=== PATIENT | male | born 1945 | race Caucasian/White ===

== ENCOUNTER 2020-05-04 19:53 | Emergency (ER) | payer BC ==
[~2020-05-04] VITALS: Ht 182.9 cm; Wt 104.1 kg
[2020-05-04] MEDS ORDERED: PRAVACHOL40 MG PO (20:16)
[2020-05-04] MEDS ORDERED: TOPROL XL50 MG PO (20:16)
[2020-05-04] MEDS ORDERED: NORVASC5 M1 PO (20:16)
[2020-05-04] MEDS ORDERED: BENAZEPRIL HCL40 MG PO (20:16)
[2020-05-04 20:35] LABS: ABSOLUTE LYMPHOCYTES 0.6 thou/uL (0.8-5.3); ABSOLUTE MONOCYTES 0.3 thou/uL (0.0-1.2); ABSOLUTE NEUTROPHILS 1.9 thou/uL (1.6-8.1); BASOPHILS 0.7 %; EOSINOPHILS 0.3 %; HEMATOCRIT 43.2 % (42.0-52.0); HEMOGLOBIN 15.2 gm/dL (14.0-18.0); LYMPHOCYTES 22.7 %; MCH 32.4 pg (26.0-34.0); MCHC 35.3 g/dL (28.0-37.0); MCV 91.9 fL (80.0-100.0); MONOCYTES 9.6 %; MPV 7.5 fl. (7.2-11.1); NUCLEATED RBCS 0 /100WBC; PLATELET COUNT* 117 thou/uL (150-400); POLYS 66.7 %; RBC 4.69 mil/uL (4.50-6.00); RDW-CV 14.1 % (10.5-14.5); WBC 2.8 thou/uL (4.0-11.0)
[2020-05-04 20:50] LABS: INR 1.1; PROTIME 11.2 Seconds (9.20-11.50)
[2020-05-04 20:54] LABS: CALCIUM 8.3 mg/dL (8.5-10.1); CREATININE 1.6 mg/dL (0.6-1.3)
[2020-05-04 20:58] LABS: ALBUMIN 3.6 g/dL (3.4-5.0); TOTAL BILIRUBIN 1.1 mg/dL (<0.1-1.0); TOTAL PROTEIN 7.5 g/dL (6.4-8.2)
[2020-05-04 22:15] VITALS: BP 136/55
[2020-05-04 22:16] LABS: INFLUENZA A ANTIGEN Negative (Negative); INFLUENZA B ANTIGEN Negative (Negative)
--- NOTE | 2020-05-06 10:26 | EKG ---
[place] [address] ELECTROCARDIOGRAM REPORT Name: SHAVONNE MIRANDA Room: [facility]#: [id number] Admission: 05/04/20 Attend Phys: Discharge: 05/04/20 Date of : 41 Date of Service: 05/04/202020 Report #: [id number] THIS REPORT FOR: //name// [facility] ED Test Date: 2020-05-04 Test Time: 20:21:39 Pat Name: SHAVONNE MIRANDA Department: Room: Gender: Senior Sous Chef: : 1945 Requested By: Nargis Proctor Order Number: [id number] MD: Yonny Pereyra Measurements Intervals [place] Rate: 72 P: -38 ND: 166 QRS: -33 QRSD: 112 T: 39 QT: 400 QTc: 438 Interpretive Statements Sinus rhythm Borderline IVCD with LAD Borderline T wave abnormalities No previous ECG available for comparison Electronically Signed On 05-06-2020 10:26:26 CDT by Yonny Pereyra [email or web address] <ELECTRONICALLY SIGNED> By: Yonny Pereyra MD, [facility] 10/06/15 1026 20 20 Yonny Pereyra MD, [facility] /EPI
== END 2020-05-04 22:15 | disposition home or self-care (01) ==
LOC: M.ERS 19:53
PROVIDERS: Emergency Medicine
DX: U07.1 COVID-19 (principal); R41.82 Altered mental status, unspecified; R26.81 Unsteadiness on feet; Z79.899 Other long term (current) drug therapy; Z88.2 Allergy status to sulfonamides

== ENCOUNTER 2020-05-07 22:47 | Inpatient (IN) | payer MEDICARE ==
[~2020-05-07] VITALS: Ht 188 cm; Wt 99.7 kg
--- NOTE | ~2020-05-07 | CON ---
[address] [address] CONSULTATION Name: SHAVONNE MIRANDA Enrique Room: [address] ADM IN M.R.#: [id number] Admission: 05/08/20 Attend Phys: Jeremy Garcia, Discharge: Date of : 41 Report #: [id number] THIS REPORT FOR: //name// cc: Tito Foster DO Tito Foster DO ~ THIS REPORT FOR: //name// DATE OF SERVICE: 05/08/2020 HISTORY OF PRESENT ILLNESS: This is a 74-year-old male patient who was evaluated by me for altered mental status. I am not able to get any history in this patient. I reviewed the note from Dr. Fenton as well as Dr. Zapata. Pulmonary note is not typed yet. This patient is COVID positive. He was sent home recently. He was admitted with worsening mentation. That is all the history, which is available. I reviewed the patient's record and I do not think they did any imaging study of the brain in the Emergency Room. This is all the records I have in this patient. There is another record, which is from Dr. Proctor and it looks like he just went home because he did not want to be admitted. That is all the history I can get, but I will try to reach his primary and try to reach admitting doctor and try to talk to the collection specialist and the nurses if we can. I do not know whether this patient has any problem before or not, but I am going to call and we will try to dictate an addendum. On my examination, he did not let me do anything and he did not do anything. He does not appear to have any meningeal sign, but I can tell, he moved anything because he will not do absolutely nothing for me. Apparently, his oxygen saturation was low when he came to Emergency Room and hopefully that will become better. Only imaging studies I see is a chest x-ray, which I reviewed. IMPRESSION: This patient has altered mental status of unknown etiology at the moment. He is COVID positive, but he needs further workup. I have written an order to find out from collection specialist as well as hospitalist to see if he can go down for CT scan. We can see how he does if his oxygen saturation improves. Thank you very much, but I will try to contact other people and see what kind of workup we can do. By: 2143Peli Meléndez MD /nt
[~2020-05-07 22:47] MED LIST: BENAZEPRIL HCL40 MG PO; NORVASC5 M1 PO; PRAVACHOL40 MG PO; TOPROL XL50 MG PO
[2020-05-07 22:49] VITALS: BP 144/92
[2020-05-07] MEDS ORDERED: ALLOPURINOL 30300 M1 PO (22:56)
[2020-05-07 23:32] LABS: ABSOLUTE LYMPHOCYTES 0.4 thou/uL (0.8-5.3); ABSOLUTE MONOCYTES 0.4 thou/uL (0.0-1.2); ABSOLUTE NEUTROPHILS 3.1 thou/uL (1.6-8.1); BASOPHILS 0.5 %; HEMATOCRIT 48.6 % (42.0-52.0); LYMPHOCYTES 9.5 %; MCHC 35.1 g/dL (28.0-37.0); MCV 91.2 fL (80.0-100.0); MONOCYTES 10.2 %; NUCLEATED RBCS 0 /100WBC; PLATELET COUNT* 136 thou/uL (150-400); POLYS 79.8 %; RBC 5.33 mil/uL (4.50-6.00); RDW-CV 13.9 % (10.5-14.5); WBC 3.8 thou/uL (4.0-11.0)
[2020-05-07 23:47] LABS: APTT 28.9 Seconds (25.0-31.3); INR 1.2
[2020-05-07 23:48] LABS: CALCIUM 8.9 mg/dL (8.5-10.1); CREATININE 1.7 mg/dL (0.6-1.3); POTASSIUM 4.5 mmol/L (3.5-5.1)
[2020-05-07 23:58] LABS: ALBUMIN 3.7 g/dL (3.4-5.0); TOTAL BILIRUBIN 1.3 mg/dL (<0.1-1.0)
[2020-05-08] VITALS (8 sets, daily range): BP systolic 113–148; BP diastolic 63–80
[2020-05-08 00:14] LABS: URINE BLOOD 2+ (Negative); URINE CLARITY CLEAR; URINE COLOR YELLOW; URINE GLUCOSE-RANDOM NEGATIVE (Negative); URINE KETONES 1+ (Negative); URINE LEUKOCYTES-REFLEX NEGATIVE (Negative); URINE NITRITE-REFLEX NEGATIVE (Negative); URINE PROTEIN 3+ (Negative); URINE SPECIFIC GRAVITY >= 1.030 (1.005-1.030)
[2020-05-08 00:15] LABS: URINE BILIRUBIN 1+ (Negative)
[2020-05-08 00:16] LABS: ICTOTEST (BILI CONFIRMATORY) Negative (Negative)
[2020-05-08 00:26] LABS: FINE GRANULAR CASTS 0-3 Few /LPF (None Seen); HYALINE CASTS 0-3 Few /LPF (None Seen); SQUAMOUS 0-3 Few /LPF (0-3)
[2020-05-08 00:27] LABS: BACTERIA-REFLEX 1-9 Few /HPF (None Seen); URINE RBC 0-2 Rare /HPF (0-2); URINE WBC-REFLEX 0-5 Rare /HPF (0-5)
[2020-05-08 00:28] LABS: AMORPHOUS URATES Moderate /LPF (None Seen)
[2020-05-08 10:28] LABS: ALBUMIN 3.3 g/dL (3.4-5.0); CALCIUM 8.6 mg/dL (8.5-10.1); CREATININE 1.3 mg/dL (0.6-1.3); POTASSIUM 4.3 mmol/L (3.5-5.1); TOTAL PROTEIN 7.6 g/dL (6.4-8.2)
--- NOTE | 2020-05-08 15:54 | EKG ---
[place] [address] ELECTROCARDIOGRAM REPORT Name: SHAVONNE MIRANDA Enrique Room: [address] ADM IN .R.#: [id number] Admission: 05/08/20 Attend Phys: Jeremy Fernandez Discharge: Date of : 41 Date of Service: 05/07/20 2259 Report #: [id number] THIS REPORT FOR: //name// [facility] ED Test Date: 2020-05-07 Test Time: 22:59:57 Pat Name: SHAVONNE MIRANDA Department: Room: [facility] Gender: M Agriculture Worker: IRAM : 1945 Requested By: Vidal Zapata Order Number: [id number] MD: Tito Beltran Measurements Intervals [place] Rate: 96 P: 119 PA: 166 QRS: -27 QRSD: 91 T: 159 QT: 356 QTc: 450 Interpretive Statements Sinus rhythm Probable left atrial enlargement Borderline left axis deviation Borderline repolarization abnormality Compared to ECG 05/04/2020 20:21:39 T-wave abnormality no longer present Electronically Signed On 05-08-2020 15:54:16 CDT by Tito Beltran [email or web address] <ELECTRONICALLY SIGNED> By: Tito Beltran MD, [facility] 05/08/20 1554 2259 [id number] Tito Beltran MD, [facility] /EPI
[2020-05-09] VITALS (7 sets, daily range): BP systolic 133–154; BP diastolic 58–88
[2020-05-09 02:06] LABS: GLYCOHEMOGLOBIN (HGB A1C) 5.2 % (4.8-5.6)
[2020-05-09 04:18] LABS: HEMATOCRIT 44.1 % (42.0-52.0); HEMOGLOBIN 15.3 gm/dL (14.0-18.0); MCH 31.7 pg (26.0-34.0); MCHC 34.7 g/dL (28.0-37.0); MCV 91.4 fL (80.0-100.0); MPV 7.5 fl. (7.2-11.1); NUCLEATED RBCS 0 /100WBC; PLATELET COUNT* 130 thou/uL (150-400); RBC 4.82 mil/uL (4.50-6.00); WBC 6.4 thou/uL (4.0-11.0)
[2020-05-09 04:58] LABS: ALBUMIN 2.9 g/dL (3.4-5.0); CALCIUM 8.4 mg/dL (8.5-10.1); CREATININE 1.3 mg/dL (0.6-1.3); MAGNESIUM 2.5 mg/dL (1.8-2.4); POTASSIUM 4.6 mmol/L (3.5-5.1); TOTAL BILIRUBIN 0.8 mg/dL (<0.1-1.0)
[2020-05-09 05:08] LABS: CHOLESTEROL 97 mg/dL (<200); HDL CHOLESTEROL 19 mg/dL (>40); LDL CHOLESTEROL 60 mg/dL (<100); TC:HDL 5.1 Ratio (Not establshd); TRIGLYCERIDE 93 mg/dL (<150); VLDL 19 mg/dL (<40)
[2020-05-09 05:12] LABS: SERUM ASSESSMENT Clear
[2020-05-09 06:31] LABS: ABSOLUTE LYMPHOCYTES 0.5 thou/uL (0.8-5.3); ABSOLUTE MONOCYTES 0.4 thou/uL (0.0-1.2); ABSOLUTE NEUTROPHILS 5.5 thou/uL (1.6-8.1); ANISOCYTOSIS 1+; PLATELET ESTIMATE DECREASED; POIKILOCYTOSIS 1+
[2020-05-10 04:56] VITALS: BP 135/81
[2020-05-10 05:31] LABS: ABSOLUTE LYMPHOCYTES 0.3 thou/uL (0.8-5.3); ABSOLUTE MONOCYTES 0.3 thou/uL (0.0-1.2); ABSOLUTE NEUTROPHILS 3.5 thou/uL (1.6-8.1); HEMATOCRIT 42.9 % (42.0-52.0); HEMOGLOBIN 14.9 gm/dL (14.0-18.0); MCHC 34.8 g/dL (28.0-37.0); MCV 91.9 fL (80.0-100.0); MONOCYTES 6.1 %; MPV 8.1 fl. (7.2-11.1); NUCLEATED RBCS 0 /100WBC; PLATELET COUNT* 129 thou/uL (150-400); POLYS 85.9 %; RBC 4.67 mil/uL (4.50-6.00); RDW-CV 13.8 % (10.5-14.5); WBC 4.1 thou/uL (4.0-11.0)
[2020-05-10 05:47] LABS: ALBUMIN 2.8 g/dL (3.4-5.0); CALCIUM 8.1 mg/dL (8.5-10.1); CREATININE 1.3 mg/dL (0.6-1.3); POTASSIUM 3.7 mmol/L (3.5-5.1); TOTAL BILIRUBIN 0.6 mg/dL (<0.1-1.0); TOTAL PROTEIN 6.6 g/dL (6.4-8.2)
[2020-05-10 08:00] VITALS: BP 159/82
--- NOTE | 2020-05-10 12:19 | CON ---
[address] [address] CONSULTATION Name: RUTHSHAVONNE Enrique Room: [address] IN M.R.#: [id number] Admission: 05/08/20 Attend Phys: Jeremy Garcia, Discharge: Date of : 41 Report #: [id number] THIS REPORT FOR: //name// cc: Tito Foster John E. DO ~ THIS REPORT FOR: //name// DATE OF SERVICE: 05/08/2020 REQUESTING PHYSICIAN: Dr. Fenton. INDICATION FOR CONSULTATION: COVID-19 with hypoxia. HISTORY OF PRESENT ILLNESS: The patient is a 74-year-old gentleman. He is reported to have an extensive history of smoking in the past; however, I do not see a diagnosis of COPD on his record. He also does have a history of hypertension. At this time, the patient is admitted with altered mental status. He has been found to be positive for COVID-19 antigen. He does state that he is short of breath; however, he is not able to provide any meaningful history. The patient's reported to have had severe hypoxemia initially, the exact amount of oxygen he was on is not known to me. There has been a gradual improvement in his oxygenation. The patient has now been titrated down to 2 liters oxygen via nasal cannula. He is maintaining O2 saturation in the mid 90s. The patient does remain very lethargic. He was profoundly drowsy at the time of my examination; however, I was able to arouse him. When aroused, he was awake. He had no other complaints. He does accept that he has had an occasional cough. REVIEW OF SYSTEMS: As obtained from the patient is negative for 12 points except that he says he has been weak, sickly, feeling lethargic and sleepy; however, he is not able to provide a detailed review of systems. PAST MEDICAL HISTORY: Hypertension, hyperlipidemia. He also is on allopurinol at home and, therefore, it is possible that he has hyperuricemia or gout. SOCIAL HISTORY: He is reported to have an extensive history of smoking and now discontinued. I do not have details available. The patient is unable to provide details. No known history of heavy alcohol use or illegal drug use. ALLERGIES: SULFONAMIDE ANTIBIOTICS. FAMILY HISTORY: There is no pertinent family history known at this time. PHYSICAL EXAMINATION: GENERAL: He was very drowsy, but I was able to arouse him. VITAL SIGNS: He has a pulse of 60 and a blood pressure of 140/72. He is on 2 liters nasal cannula. He is saturating in the mid 90s. [place] [address] CONSULTATION Name: SHAVONNE MIRANDA Enrique Room: [address] IN .R.#: [id number] Admission: 05/08/20 Attend Phys: Jeremy Garcia, Discharge: Date of : 41 Report #: [id number] temperature of 35.6. Initially, his temperature was up to 37.6. HEENT: Head is normocephalic and atraumatic. NECK: Does not show raised JVP. CHEST: Breath sounds bilaterally equal, mildly decreased. No added sounds. HEART: Regular. There is no murmur. ABDOMEN: Soft and nontender. EXTREMITIES: Lower extremities show no edema, no calf tenderness. SKIN: Dry and intact. NEUROLOGICAL: Moves all extremities bilaterally equally and spontaneously with no focal deficit identified. LABORATORY DATA: The patient's chest x-ray is reviewed from yesterday, which does not show any significant infiltrates or pulmonary vascular congestion. There are some chronic changes. There likely is some cardiomegaly. The patient's CBC as well as chemistries from yesterday, which do appear to show intravascular volume depletion with improvement this morning in [facility], reviewed. ASSESSMENT AND PLAN: 1. Acute respiratory insufficiency. This is secondary to COVID-19 as well as altered mental status. Etiology of his altered mental status is not fully defined at this time. 2. COVID-19. I agree with remdesivir as well as Decadron as currently ordered. It is also reasonable to cover for possible secondary bacterial infections with ceftriaxone as currently ordered. 3. Altered mental status. Neurology opinion is also pending at this time. 4. Probable underlying chronic obstructive pulmonary disease. I will go ahead and order albuterol via inhaler. He potentially may benefit from nebulized bronchodilators. He may also benefit from a BiPAP while asleep, especially with altered mental status; however, he is currently not in a negative pressure room and he overall appears to be improving. Therefore, I did not proceed with considering the same at this time. 5. Evaluation for thromboembolic phenomena. We will do a D-dimer and then assess further. Note, he will be high risk for administration of IV dye. 6. Acute renal insufficiency, improved on labs this morning. He is on IV fluids. Follow closely. 7. Elevated liver function enzymes. Need to be followed closely while on remdesivir. We will repeat again tomorrow. Thanks for this consultation. <ELECTRONICALLY SIGNED> By: Darion Washington MD 05/10/20 1219 1945 [id number] tatyana Krueger
[2020-05-10 12:53] VITALS: BP 142/73
[2020-05-10 16:16] VITALS: BP 112/73
--- NOTE | 2020-05-10 17:25 | 2DMMODE ---
[place] [address] 2 D/M-MODE ECHOCARDIOGRAM Name: SHAVONNE MIRANDA Enrique Room: [address] IN .R.#: [id number] Admission: 05/08/20 Attend Phys: Jeremy Fernandez Discharge: Date of : 41 Date of Service: 05/10/20 1724 Report #: [id number] THIS REPORT FOR: cc: Tito Foster John E. DO Liston, Michael J. MD [facility]ED WITH [facility] ~ APPROVED REPORT Study performed: 05/10/2020 14:51:57 EXAM: Limited 2D, Doppler, and color-flow Echocardiogram Patient Location: Bedside BSA: 2.25 HR: 61 bpm BP: 142/73 mmHg Other Information Study Quality: Good Indications Dyspnea 2D Dimensions IVSd: 18.73 (7-11mm) LVOT Diam: 26.01 (18-24mm) LVDd: 51.10 mm PWd: 13.65 (7-11mm) Ascending Ao: 35.58 (22-36mm) LVDs: 37.72 (25-40mm) Aortic Root: 34.76 mm Volumes Left Atrial Volume (Systole) LA ESV Index: 19.00 mL/m2 Aortic Valve AoV Peak Boy.: 1.21 m/s AO Peak Gr.: 5.86 mmHg LVOT Max P.94 mmHg AO Mean Gr.: 3.24 mmHg LVOT Mean P.32 mmHg LVOT Max V: 0.86 m/s AO V2 VTI: 22.98 cm LVOT Mean V: 0.52 m/s ZACH (VTI): 4.18 cm2 LVOT V1 VTI: 18.09 cm Mitral Valve E/A Ratio: 0.92 MV Decel. Time: 221.70 [place] [address] 2 D/M-MODE ECHOCARDIOGRAM Name: SHAVONNE MIRANDA Room: [address] IN .R.#: [id number] Admission: 05/08/20 Attend Phys: Jeremy Fernandez Discharge: Date of : 41 Date of Service: 05/10/20 1724 Report #: [id number] E Max Boy.: 0.60 m/s MV PHT: 64.29 ms MVA (PHT): 3.42 cm2 Pulmonary Valve PV Peak Boy.: 0.91 m/s PV Peak Gr.: 3.32 mmHg Tricuspid Valve RAP Estimate: 5.00 mmHg TR Peak Gr.: 7.39 mmHg RVSP: 12.39 mmHg PA Pressure: 12.39 mmHg Left Ventricle The left ventricle is normal size. There is normal LV segmental wall motion. Mild to moderate concentric left ventricular hypertrophy. Left ventricular systolic function is normal. LVEF is 55-60%. Right Ventricle The right ventricle is normal size. The right ventricular systolic function is normal. Atria The left atrium size is normal. Interatrial septum not well visualized. The right atrium size is normal. Aortic Valve The aortic valve is normal in structure. No aortic regurgitation is present. There is no aortic valvular stenosis. Mitral Valve The mitral valve is normal in structure. Trace mitral regurgitation. No evidence of mitral valve stenosis. Tricuspid Valve The tricuspid valve is normal in structure. Trace tricuspid regurgitation. Pulmonic Valve The pulmonary valve is normal in structure. There is no pulmonic valvular regurgitation. Great Vessels The aortic root is normal in size. IVC is not [place] [address] 2 D/M-MODE ECHOCARDIOGRAM Name: SHAVONNE MIRANDA Enrique Room: [address] IN .R.#: [id number] Admission: 05/08/20 Attend Phys: Jeremy Fernandez Discharge: Date of : 41 Date of Service: 05/10/20 1724 Report #: [id number] There is no pericardial effusion. <Conclusion> The left ventricle is normal size. Mild to moderate concentric left ventricular hypertrophy. Left ventricular systolic function is normal. LVEF is 55-60%. There is normal LV segmental wall motion. Trace mitral regurgitation. Trace tricuspid regurgitation. <ELECTRONICALLY SIGNED> By: Beau Short MD, FACC 05/10/20 1724 23 23 Beau Short MD, FACC /INF
[2020-05-10 21:39] VITALS: BP 160/79
[2020-05-11] VITALS (7 sets, daily range): BP systolic 142–167; BP diastolic 58–85
[2020-05-11 05:43] LABS: ABSOLUTE LYMPHOCYTES 0.3 thou/uL (0.8-5.3); ABSOLUTE MONOCYTES 0.4 thou/uL (0.0-1.2); ABSOLUTE NEUTROPHILS 5.1 thou/uL (1.6-8.1); BASOPHILS 0.1 %; HEMATOCRIT 44.7 % (42.0-52.0); HEMOGLOBIN 15.4 gm/dL (14.0-18.0); LYMPHOCYTES 5.1 %; MCHC 34.4 g/dL (28.0-37.0); MONOCYTES 6.3 %; MPV 8.7 fl. (7.2-11.1); NUCLEATED RBCS 0 /100WBC; PLATELET COUNT* 143 thou/uL (150-400); POLYS 88.5 %; RBC 4.81 mil/uL (4.50-6.00); RDW-CV 13.7 % (10.5-14.5); WBC 5.8 thou/uL (4.0-11.0)
[2020-05-11 06:01] LABS: CALCIUM 8.3 mg/dL (8.5-10.1); CREATININE 1.1 mg/dL (0.6-1.3); POTASSIUM 4.1 mmol/L (3.5-5.1); TOTAL BILIRUBIN 0.9 mg/dL (<0.1-1.0)
[2020-05-11 06:05] LABS: PREALBUMIN 16.3 mg/dL (18.0-35.7)
[2020-05-12 03:15] VITALS: BP 160/78
[2020-05-12 04:51] LABS: ABSOLUTE LYMPHOCYTES 0.5 thou/uL (0.8-5.3); ABSOLUTE MONOCYTES 0.6 thou/uL (0.0-1.2); BASOPHILS 0.1 %; HEMATOCRIT 41.5 % (42.0-52.0); HEMOGLOBIN 14.6 gm/dL (14.0-18.0); LYMPHOCYTES 7.2 %; MCH 31.9 pg (26.0-34.0); MCHC 35.1 g/dL (28.0-37.0); MCV 90.9 fL (80.0-100.0); MPV 8.3 fl. (7.2-11.1); NUCLEATED RBCS 0 /100WBC; PLATELET COUNT* 149 thou/uL (150-400); POLYS 84.7 %; RBC 4.57 mil/uL (4.50-6.00); RDW-CV 13.7 % (10.5-14.5); WBC 7.1 thou/uL (4.0-11.0)
[2020-05-12 06:44] LABS: ALBUMIN 2.7 g/dL (3.4-5.0); CALCIUM 7.8 mg/dL (8.5-10.1); MAGNESIUM 2.3 mg/dL (1.8-2.4); TOTAL BILIRUBIN 0.9 mg/dL (<0.1-1.0)
[2020-05-12 08:00] VITALS: BP 139/81
[2020-05-12] MEDS ORDERED: DEXAMETHASONE1 MG PO (12:06)
[2020-05-12] MEDS ORDERED: PROTONIX40 M4 PO (12:06)
[2020-05-12] MEDS ORDERED: DOXYCYCLINE 10100 MG PO (12:06)
[2020-05-12 13:20] VITALS: BP 141/77
[2020-05-12 19:52] VITALS: BP 149/70
[2020-05-13] VITALS: BP 121/71
[2020-05-13 08:00] VITALS: BP 143/83
[2020-05-13 15:00] VITALS: BP 148/74
[2020-05-13 15:29] VITALS: BP 148/74
== END 2020-05-13 17:30 | disposition home health service (06) | DRG 871 ==
LOC: M.ERS 22:47 → M.TBA-ER 05-08 00:53 → M.2W 05-08 14:30
PROVIDERS: Emergency Medicine Emergency Medical Services; Internal Medicine; ADMIT Family Medicine; ATTEND Family Medicine
PROC: XW033E5 Introduction of Remdesivir Anti-infective into Peripheral Vein, Percutaneous Approach, New Technology Group 5 (ICD-10-PCS; principal; 2020-05-08)
DX: A41.89 Other specified sepsis (principal); U07.1 COVID-19; J12.89 Other viral pneumonia; J96.00 Acute respiratory failure, unspecified whether with hypoxia or hypercapnia; N17.9 Acute kidney failure, unspecified; J44.0 Chronic obstructive pulmonary disease with (acute) lower respiratory infection; G93.49 Other encephalopathy; I10 Essential (primary) hypertension; E78.5 Hyperlipidemia, unspecified; M10.9 Gout, unspecified; R77.8 Other specified abnormalities of plasma proteins; F03.90 Unspecified dementia, unspecified severity, without behavioral disturbance, psychotic disturbance, mood disturbance, and anxiety; Z79.899 Other long term (current) drug therapy; Z88.2 Allergy status to sulfonamides; Z87.891 Personal history of nicotine dependence